=== PATIENT | male | born 1975 | race Caucasian/White ===

== ENCOUNTER 2016-05-15 16:53 | Emergency (ER) | payer OTHER ==
[~2016-05-15] VITALS: Ht 177.8 cm; Wt 63.5 kg
--- NOTE | 2016-05-15 17:41 | ED NECK/BACK PAIN COMPLAINT ---
History of Present Illness General Chief Complaint: Low Back Pain/Injury Stated Complaint: FALL YESTERDAY LOWER BACK PAIN Source: patient Exam Limitations: no limitations Vital Signs & Intake/Output Vital Signs & Intake/Output Vital Signs Date Time Temp Pulse Resp B/P Pulse O2 O2 Flow FiO2 Ox Delivery Rate 05/15 1912 97.0 80 128/90 05/15 1899 894 112/60 05/15 190 97 Room Air 05/15 1657 98.5 83 20 134/81 97 Room Air Allergies Coded Allergies: venom-honey bee (LOCAL REACTION - SWELLING AT SITE 05/15/16) Reconcile Medications Oxycodone HCl/Acetaminophen (Percocet 5-325 MG Tablet) 5 MG-325 MG TABLET 1-2 TAB PO Q6P PRN pain Triage Note: PT TO ED C/O RIGHT SHOULDER PAIN AND LOW BACK PAIN S/P FALLING DOWN 9 STAIRS YESTERDAY. STATES WAS A SLIP AND FALL. DENIES HEAD STRIKE. TOOK MOTRIN WITH SOME RELIEF. Triage Nurses Notes Reviewed? yes Onset: Abrupt Duration: day(s): (2), constant, continues in ED Timing: recent history Quality/Severity: moderate, severe Location: lumbar spine Method of Injury: fall Loss of Consciousness: no loss of consciousness HPI: 40-year-old male comes into the emergency room with complaints of low back pain. Patient reports that he slipped going down the steps of his house yesterday and came down on his lower back. Sharp pain. Denies any head injury. Denies any neck pain. Some mild upper back pain. Denies any vomiting or any other associated symptoms at this time. Pain is sharp. Continuous. Worse with range of motion. (PITO HANSON) Past History Travel History Traveled to [place] past 21 day No Medical History Any Pertinent Medical History? see below for history Musculoskeletal: chronic back pain Surgical History Surgical History: non-contributory Psychosocial History What is your primary language Macedonian Tobacco Use: Current Daily Use Daily Tobacco Use Amount/Type: => 5 Cigarettes daily ETOH Use: denies use Illicit Drug Use: denies illicit drug use Family History Hx Contributory? No (PITO HANSON) Review of Systems Review of Systems Constitutional: Reports: no symptoms. Eyes: Reports: no symptoms. Ears, Nose, Throat, Mouth: Reports: no symptoms. Respiratory: Reports: no symptoms. Cardiovascular: Reports: no symptoms. Gastrointestinal/Abdominal: Reports: no symptoms. Musculoskeletal: Reports: see HPI. Skin: Reports: no symptoms. Neurological/Psychological: Reports: no symptoms. All Other Systems: Reviewed and Negative (PITO HANSON) Physical Exam Physical Exam General Appearance: well developed/nourished, mild distress Head: atraumatic Eyes: Bilateral: normal appearance. Ears, Nose, Throat, Mouth: hearing grossly normal, moist mucous membrane Neck: normal inspection Respiratory: no respiratory distress Back: normal inspection, LOWER LUMBAR VERTEBRAL TENDERNESS AND PARASPINAL TENDERNESS, FULL RANGE OF MOTION, Extremities: normal range of motion Motor: Deficit L4 Right: No Deficit L4 Left: No Deficit L5 Right: No Deficit L5 Left: No Deficit S1 Right: No Deficit S1 Right: No Neurologic/Psych: awake, alert, oriented x 3, normal mood/affect Skin: intact, normal color, warm/dry (PITO HANSON) Progress Differential Diagnosis: cauda equina syn, herniated disc, myofascial strain, sciatica, spinal cord inj, thoracic outlet syn Plan of Care: Orders Procedure Date/time Status XRY-LUMBOSACRAL SPINE 4 VIEWS 05/15 1736 Active Diagnostic Imaging: Viewed by Me: Radiology Read. Discussed w/RAD: Radiology Read. Radiology Impression: SERVICE DATE: 05/15/16 EXAM TYPE: RAD - XRY- LUMBOSACRAL SPINE 4 VIEWS EXAMINATION: XR LUMBOSACRAL SPINE CLINICAL INFORMATION : Low back pain after a fall COMPARISON: None TECHNIQUE: AP and lateral views of the lumbosacral spine were obtained. Cone-down AP lateral lumbosacral junction FINDINGS: The vertebral bodies and posterior elements are normal. The disc spaces are preserved and the vertebral alignment is normal. The paraspinal soft tissues are normal. IMPRESSION: Unremarkable examination. DICTATED BY: JOAN HOWARD MD DATE/TIME DICTATED:05/15/161901 EDITORIAL SPECIALIST:WANDY DATE/TIME TRANSCRIBED:05/15/161901 (PITO HANSON) Departure Departure Disposition: HOME OR SELF CARE Condition: Stable Clinical Impression Primary Impression: Low back strain Referrals: PATIENT HAS NO PRIMARY CARE DR (PCP/Family) Additional Instructions: Take Percocet for pain. Ice. Rest. Take ibuprofen at home. Follow-up with primary care doctor. Please go over all results of today's visit with your primary care doctor. Contact your primary care doctor to let them know you were here in the emergency room. There may be nonspecific findings which may not be related to your visit today here in the emergency room but may require further evaluation and chronic monitoring by your primary care doctor. If you had a laceration today the chance of foreign body always remains. You should follow-up with your primary care doctor for recheck in 3-5 days for a wound check. If you had an x-ray done there is a chance that a fracture could have been missed on initial read and you should follow-up with your primary care doctor for repeat x-rays if symptoms persist. If your blood pressure was elevated here in the emergency room please have rechecked by her primary care doctor within the next 48 hours by your primary care doctor. If you were prescribed a narcotic here in the emergency room or any type of controlled substances you're not allowed to drive while taking this medication or operate any type of heavy machinery. Narcotics can make you feel lightheaded dizziness nausea and can cause constipation. You may need to picker and packer a stool softener. Thank you for choosing [facility] emergency room. Please return to the emergency room immediately if you have any other concerns worsening of symptoms. Departure Forms: Customer Survey General Discharge Information Prescriptions: Current Visit Scripts Oxycodone HCl/Acetaminophen (Percocet 5-325 MG Tablet) 1-2 TAB PO Q6P PRN pain #15 TAB Comments 05/15/2016 7:30:45 PM No evidence of acute trauma. Follow-up with primary care doctor. Return if any other concerns worsening symptoms. Patient understands and agrees with plan of care. (PITO HANSON) PA/INDUSTRIAL DESIGN ENGINEER Co-Sign Statement Statement: ED Attending supervision documentation- [] I saw and evaluated the patient. I have also reviewed all the pertinent lab results and diagnostic results. I agree with the findings and the plan of care as documented in the PA's/INDUSTRIAL DESIGN ENGINEER's documentation. [X] I have reviewed the ED Record and agree with the PA's/INDUSTRIAL DESIGN ENGINEER's documentation. [] Additions or exceptions (if any) to the PAs/INDUSTRIAL DESIGN ENGINEER's note and plan are summarized below: [] (SHYAM CHU DO
--- NOTE | 2016-05-15 19:06 | RADIOLOGY REPORT ---
EXAMINATION: XR LUMBOSACRAL SPINE CLINICAL INFORMATION: Low back pain after a fall COMPARISON: None TECHNIQUE: AP and lateral views of the lumbosacral spine were obtained. Cone-down AP lateral lumbosacral junction FINDINGS: The vertebral bodies and posterior elements are normal. The disc spaces are preserved and the vertebral alignment is normal. The paraspinal soft tissues are normal. IMPRESSION: Unremarkable examination.
[2016-05-15 19:13] VITALS: BP 128/90
[2016-05-15] MEDS ORDERED: PERCOCET 5-3251 EACH PO (19:15)
== END 2016-05-15 19:19 ==
LOC: ERH 16:53
DX: S39.012A Strain of muscle, fascia and tendon of lower back, initial encounter (principal); W10.9XXA Fall (on) (from) unspecified stairs and steps, initial encounter
CPT/HCPCS: 72110

== ENCOUNTER 2016-09-26 05:26 | Emergency (ER) | payer SELFPAY ==
[~2016-09-26] VITALS: Ht 175.3 cm; Wt 59.0 kg
[~2016-09-26 05:26] MED LIST: PERCOCET 5-3251 EACH PO
--- NOTE | 2016-09-26 05:45 | ED GI/GU/ABDOMINAL COMPLAINT ---
History of Present Illness General Chief Complaint: Abdominal Pain/Flank Pain Stated Complaint: ABD PAIN SINCE 3AM Source: patient Exam Limitations: no limitations Allergies Coded Allergies: venom-honey bee (LOCAL REACTION - SWELLING AT SITE 09/26/16) Triage Note: PT TO ED FOR C/C OF ABD PAIN IN CENTER OF STOMACH THAT'S CONSTANT STABBING. +NAUSEA WITH DRY HEAVES, NO VOMITING. -DIARRHEA. -FEVER/CHILLS, DENIES UA SYMPTOMS. PT REPORTS THIS HAS HAPPENED BEFORE "AND IT WAS FLUID LEAKING INTO MY STOMACH AND THEY DIDN'T KNOW WHERE IT WAS COMING FROM." LAST BM THIS MORNING "SMALL AMOUNT". DENIES BLOOD. Triage Nurses Notes Reviewed? yes HPI: Patient presents for evaluation of a severe sharp stabbing periumbilical abdominal pain that began abruptly at about 3 AM this morning. The pain awoke him from sleep. The pain has been constant and is getting worse. It does not radiate. It is a 10 over 10 pain. History is somewhat limited secondary to the patient's pain. He did deny associated diarrhea or dysuria or hematuria. (WINSOME CLAUDIO,SHYAM Pagan) Vital Signs & Intake/Output Vital Signs & Intake/Output Vital Signs Date Time Temp Pulse Resp B/P B/P Pulse O2 O2 Flow FiO2 Mean Ox Delivery Rate 09/26 1115 98.9 47 22 146/72 99 Room Air ED Intake and Output 09/27 0000 09/26 1200 Intake Total 0 Output Total 50 Balance -50 Intake, Oral 0 Output, 50 Emesis Patient 130 lb Weight Weight Reported by Patient Measurement Method Reconcile Medications Hyoscyamine Sulfate (Levsin-Sl) 0.125 MG TAB.SUBL 1-2 TAB SL Q4P PRN abd cramps Ondansetron (Zofran Odt) 4 MG TAB.RAPDIS 1 TAB SL TID PRN nausea Oxycodone HCl/Acetaminophen (Percocet 5-325 MG Tablet) 5 MG-325 MG TABLET 1 TAB PO 4 TIMES/DAY PRN severe pain (ORA CLAUDIO,ATA) Past History Travel History Traveled to [place] past 21 day No Medical History Any Pertinent Medical History? see below for history Musculoskeletal: chronic back pain Blood Disorders: NONE Cancer(s): NONE STOCK PITCHER/Reproductive: NONE Surgical History Surgical History: non-contributory Psychosocial History What is your primary language Scottish Tobacco Use: Current Daily Use Daily Tobacco Use Amount/Type: => 5 Cigarettes daily ETOH Use: occasional use Illicit Drug Use: marijuana Family History Hx Contributory? No (WINSOME CLAUDIO,SHYAM Pagan) Review of Systems Review of Systems Constitutional: Reports: no symptoms. EENTM: Reports: no symptoms. Respiratory: Reports: no symptoms. Cardiovascular: Reports: no symptoms. GI: Reports: see HPI. Genitourinary: Reports: no symptoms. Musculoskeletal: Reports: no symptoms. Skin: Reports: no symptoms. Neurological/Psychological: Reports: no symptoms. Hematologic/Endocrine: Reports: no symptoms. Immunologic/Allergic: Reports: no symptoms. All Other Systems: Reviewed and Negative (WINSOME CLAUDIO,SHYAM Pagan) Physical Exam Physical Exam Gastrointestinal: see below Comments: Exam somewhat limited secondary to patient's pain and nausea. Gen.: Well-nourished, well-developed, no acute respiratory distress. Head: Normocephalic, atraumatic. Eyes: Normal inspection bilaterally Ears: Normal inspection bilaterally Nose: Normal inspection Throat/mouth : Moist mucosa Neck: Supple, full range of motion, no goiter Heart: Regular rate and rhythm, no murmurs rubs or gallops Lungs: Clear to auscultation bilaterally with normal air entry Chest: Nontender Back: Normal range of motion Abdomen: Epigastric abdominal tenderness with brief voluntary guarding but no rebound Extremities: Normal range of motion grossly, equal radial pulses, no cyanosis clubbing or edema Neurologic: Cranial nerves grossly intact, speech is clear Skin: warm and dry Psychiatric: Calm, cooperative, no apparent delusions or hallucinations (WINSOME CLAUDIO,SHYAM Pagan) Core Measures ACS in differential dx? No Severe Sepsis Present: No Septic Shock Present: No (ATA PAYAN MD) Progress Plan of Care: Orders Procedure Date/time Status EKG 09/26 0546 Active URINALYSIS 09/26 0542 Active LIPASE 09/26 0542 Complete COMPREHENSIVE METABOLIC PANEL 09/26 0542 Complete CBC WITHOUT DIFFERENTIAL 09/26 0542 Complete Laboratory Tests 09/26/16 0545: Anion Gap 10, Estimated GFR > 60, BUN/Creatinine Ratio 13.8, Glucose 132 H, Calcium 9.7, Total Bilirubin 0.5, AST 26, ALT 37, Alkaline Phosphatase 73, Total Protein 7.0, Albumin 4.3, Globulin 2.7, Albumin/Globulin Ratio 1.6, Lipase 82, CBC w Diff NO MAN DIFF REQ, RBC 4.67 L, MCV 92.9, MCH 30.4, RDW 14.7 H, MPV 9.7, Gran % 79.2 H, Lymphocytes % 14.6 L, Monocytes % 4.3, Eosinophils % 1.6, Basophils % 0.3, Absolute Granulocytes 8.2 H, Absolute Lymphocytes 1.5, Absolute Monocytes 0.4, Absolute Eosinophils 0.2, Absolute Basophils 0, PUBS MCHC 32.7 L Hand-Off Endorsed To: ATA PAYAN MD (SHYAM SCHUMACHER MD) Differential Diagnosis: AMI, appendicitis, biliary colic, diverticulitis Diagnostic Imaging: Viewed by Me: CT Scan. Discussed w/RAD: CT Scan. Radiology Impression: There is a trace volume of fluid layering within the pelvis, the source of which is uncertain. Otherwise normal examination with no evidence of a discrete abnormal finding to provide an explanation for the patient's abdominal pain. Initial ED EKG: none (ATA PAYAN MD) Departure Departure Condition: Stable Departure Forms: Customer Survey General Discharge Information (WINSOME CLAUDIO,SHYAM Pagan) Departure Time of Disposition: 1101 Disposition: HOME OR SELF CARE Clinical Impression Primary Impression: Abdominal pain Referrals: PATIENT HAS NO PRIMARY CARE DR (PCP/Family) JERALD CLAUDIO,COSME Reilly Prescriptions: Current Visit Scripts Oxycodone HCl/Acetaminophen (Percocet 5-325 MG Tablet) 1 TAB PO 4 TIMES/DAY PRN severe pain #20 TAB Ondansetron (Zofran Odt) 1 TAB SL TID PRN nausea #10 TAB Hyoscyamine Sulfate (Levsin-Sl) 1-2 TAB SL Q4P PRN abd cramps #30 TAB (ATA PAYAN MD)
[2016-09-26 05:52] LABS: ABSOLUTE BASOPHIL COUNT 0 /CUMM (0.0-0.2); ABSOLUTE EOSINOPHIL COUNT 0.2 /CUMM (0.0-0.7); ABSOLUTE GRANULOCYTE CT 8.2 /CUMM (1.4-6.5); ABSOLUTE LYMPH COUNT 1.5 /CUMM (1.2-3.4); ABSOLUTE MONOCYTE COUNT 0.4 /CUMM (0.10-0.60); BASOPHIL % 0.3 % (0.0-2.0); EOSINOPHIL % 1.6 % (0-5); GRANULOCYTE % 79.2 % (42.2-75.2); HEMATOCRIT 43.4 % (42-52); MEAN CORPUSCULAR HGB 30.4 PG (27.0-31.0); MEAN CORPUSCULAR HGB CONC 32.7 G/DL (33.0-37.0); MEAN CORPUSCULAR VOLUME 92.9 FL (80.0-94.0); MEAN PLATELET VOLUME 9.7 FL (7.4-10.4); PLATELET COUNT 155 /CUMM (130-400); RBC DISTRIBUTION WIDTH 14.7 % (11.5-14.5); RED BLOOD CELL CT 4.67 /CUMM (4.70-6.10); WHITE BLOOD CELL COUNT 10.3 /CUMM (4.8-10.8)
--- NOTE | 2016-09-26 07:22 | CT SCAN REPORT ---
EXAMINATION: CT ABDOMEN AND PELVIS WITH CONTRAST CLINICAL INFORMATION: Vomiting and epigastric pain. COMPARISON: CT scan of the abdomen and pelvis 11/17/2011. TECHNIQUE: Multidetector volumetric imaging was performed of the abdomen and pelvis before and after the IV administration of 95 mL of Optiray 320 intravenous contrast. Sagittal and coronal reformatted images were obtained on the technologist's workstation. DLP: 263.53 mGy-cm FINDINGS: LUNG BASES: Lung bases are clear. There is no pleural or pericardial effusion. LIVER, GALLBLADDER, AND BILIARY TREE: Liver attenuation is homogeneous and there is no evidence of a discrete hepatic parenchymal mass. The gallbladder is unremarkable with no evidence of radiopaque gallstones, gallbladder wall thickening, or obvious pericholecystic inflammatory changes. PANCREAS: Unremarkable. SPLEEN: Unremarkable. ADRENAL GLANDS: Unremarkable. KIDNEYS AND URETERS: Kidneys demonstrate symmetric corticomedullary enhancement. There is a well marginated benign-appearing cystic lesion at the lower pole the right kidney. No hydroureteronephrosis. No abnormal perinephric inflammation or collection. Grossly no abnormal mass or calcifications visualized along the course of the rotator left ureter. BLADDER: Unremarkable. GASTROINTESTINAL TRACT: The stomach and small bowel are normal. No evidence of suggest obstruction. The appendix is normal. A trace volume of fluid layers within the pelvis, the source of which is uncertain. No abnormal mesenteric or retroperitoneal inflammation. ABDOMINAL WALL: No significant hernia is appreciated. LYMPH NODES: No pathologically enlarged mesenteric or retroperitoneal lymph nodes. VASCULAR: The abdominal aorta and inferior vena cava are unremarkable. PELVIC VISCERA: Unremarkable. OSSEOUS STRUCTURES: Unremarkable. IMPRESSION: There is a trace volume of fluid layering within the pelvis, the source of which is uncertain. Otherwise normal examination with no evidence of a discrete abnormal finding to provide an explanation for the patient's abdominal pain.
[2016-09-26] MEDS ORDERED: ZOFRAN ODT4 M1 SL (11:03)
[2016-09-26] MEDS ORDERED: LEVSIN-SL0.125 MG SL (11:03)
[2016-09-26] MEDS ORDERED: PERCOCET 5-3251 EACH PO (11:03)
[2016-09-26 11:15] VITALS: BP 146/72
== END 2016-09-26 11:18 ==
LOC: ERH 05:26
PROVIDERS: Emergency Medicine
DX: R10.13 Epigastric pain (principal)
CPT/HCPCS: 74177; 93005; 93010; 96361; 96374; 96375; 96376; J1885; J2405